=== PATIENT | male | born 1990 | race Hispanic/Latino ===

== ENCOUNTER 2020-07-12 18:09 | Inpatient (IN) | payer SELFPAY ==
[~2020-07-12] VITALS: Ht 172.7 cm; Wt 118.2 kg
[2020-07-12] MEDS ORDERED: ONDANSETRON ODT 4 MG TAB ONE ×2 (18:15→18:17)
[2020-07-12] MEDS ORDERED: KETOROLAC TROMETHAMINE 30MG/ML ONE (19:42)
[2020-07-12 19:58] LABS: BASOPHILS % (AUTO) 0.2 % (0.0-5.0); EOSINOPHILS % (AUTO) 0.1 % (0.0-8.0); HEMATOCRIT 45.7 % (36-48); LYMPHOCYTES % (AUTO) 8.6 % (21.0-51.0); MEAN CORPUSCULAR HGB CONC 35.7 g/dL (32.0-36.0); MEAN CORPUSCULAR VOLUME 86.9 fL (79-99); MONOCYTES % (AUTO) 4.5 % (3.0-13.0); NEUTROPHILS % (AUTO) 86.2 % (40.0-77.0); PLATELET COUNT (AUTO) 212 K/uL (130-400); RED BLOOD CELL COUNT(AUTO) 5.26 MIL/uL (4.00-5.50); RED CELL DISTRIBUTION WIDTH 12.9 % (11.0-15.5); WHITE BLOOD COUNT (AUTO) 15.8 K/uL (4.8-10.8)
[2020-07-12 20:01] LABS: APPEARANCE,URINE Clear (CLEAR); BILIRUBIN,URINE Negative (NEGATIVE); COLOR,URINE Dark Yellow (YELLOW); GLUCOSE, URINE (UA) Negative (NEGATIVE); KETONES,URINE Trace mg/dL (NEGATIVE); LEUKOCYTE ESTERASE ,URINE Negative (NEGATIVE); NITRATE,URINE Negative (NEGATIVE); OCCULT BLOOD,URINE Large (NEGATIVE); PROTEIN,URINE POS 1+ mg/dL (NEGATIVE)
[2020-07-12] MEDS ORDERED: MORPHINE SULFATE 4 MG/1ML SYG ONE (20:03)
[2020-07-12 20:09] LABS: AMPHET/METH SCREEN,URINE NEGATIVE (NEGATIVE); BARBITURATE SCREEN, URINE NEGATIVE (NEGATIVE); BENZODIAZEPINES SCREEN,URINE NEGATIVE (NEGATIVE); CANNABINOID SCREEN,URINE NEGATIVE (NEGATIVE); COCAINE SCREEN,URINE NEGATIVE (NEGATIVE); OPIATE SCREEN,URINE NEGATIVE (NEGATIVE); PHENCYCLIDINE SCREEN,URINE NEGATIVE (NEGATIVE)
[2020-07-12 20:11] LABS: CREATININE 1.2 mg/dL (0.5-1.5); POTASSIUM 4.2 mmol/L (3.5-5.1)
[2020-07-12 20:16] LABS: BILIRUBIN,TOTAL 0.3 mg/dL (0.2-1.0)
[2020-07-12 20:23] LABS: CALCIUM OXALATE CRYSTALS,UR Many /LPF (None Seen)
[2020-07-12 20:24] LABS: AMORPHOUS SEDIMENT,UR Few /LPF (None Seen); BACTERIA,URINE Few /HPF (None Seen); MUCUS,URINE Few LPF (None Seen); RBC,URINE None Seen /HPF (0-1); SQUAMOUS EPITHELIAL CELL,UR 0-2 /HPF (0-2); WBC,URINE None Seen /HPF (0-1)
[2020-07-12] MEDS ORDERED: ZOSYN 3.375GM+NS 50ML 50 ML IV ONE (23:28)
[2020-07-13] MEDS ORDERED: MORPHINE SULFATE 2 MG/ML 1ML SYG IV PRN (01:00)
[2020-07-13] MEDS ORDERED: ACETAMINOPHEN 325 MG TAB PO PRN ×2 (01:00)
[2020-07-13] MEDS ORDERED: KETOROLAC TROMETHAMINE 15MG/ML IM PRN (01:00)
[2020-07-13] MEDS ORDERED: ONDANSETRON HCL 4 MG/2 ML VIAL IV PRN (01:00)
[2020-07-13 04:50] VITALS: BP 130/82
[2020-07-13 06:08] LABS: HEMOGLOBIN A1C 5.2 % (4.0-6.0)
[2020-07-13] MEDS: SODIUM CHLORIDE 0.9% 1000ML 1,000 ML IV SCH ×3 (06:47→19:24)
[2020-07-13] MEDS: ZOSYN 3.375GM+NS 50ML 50 ML IV SCH ×3 (06:47→19:24)
[2020-07-13 08:12] VITALS: BP 103/61
[2020-07-13 11:21] VITALS: BP 112/74
[2020-07-13] MEDS: TAMSULOSIN HCL 0.4 MG CAP.ER.24H PO SCH (12:30)
[2020-07-13 16:28] VITALS: BP 113/64
[2020-07-13 17:18] LABS: HEMATOCRIT 43.3 % (42-54); MEAN CORPUSCULAR HEMOGLOBIN 30.4 pg (27.0-33.0); MEAN CORPUSCULAR HGB CONC 34.6 g/dL (32.0-36.0); MEAN CORPUSCULAR VOLUME 87.7 fL (79-99); RED BLOOD CELL COUNT(AUTO) 4.94 MIL/uL (4.50-6.20); WHITE BLOOD COUNT (AUTO) 7.7 K/uL (4.8-10.8)
[2020-07-13 19:56] VITALS: BP 105/60
[2020-07-13 23:46] VITALS: BP 103/56
[2020-07-14 04:00] VITALS: BP 106/60
[2020-07-14] MEDS: ZOSYN 3.375GM+NS 50ML 50 ML IV SCH ×3 (04:32→20:42)
[2020-07-14 05:14] LABS: BASOPHILS % (AUTO) 0.5 % (0.0-5.0); EOSINOPHILS % (AUTO) 2.7 % (0.0-8.0); HEMATOCRIT 41.5 % (42-54); MEAN CORPUSCULAR HEMOGLOBIN 31.2 pg (27.0-33.0); MEAN CORPUSCULAR HGB CONC 35.7 g/dL (32.0-36.0); MEAN CORPUSCULAR VOLUME 87.4 fL (79-99); MONOCYTES % (AUTO) 11.9 % (3.0-13.0); NEUTROPHILS % (AUTO) 53.6 % (40.0-77.0); PLATELET COUNT (AUTO) 216 K/uL (130-400); RED BLOOD CELL COUNT(AUTO) 4.75 MIL/uL (4.50-6.20); WHITE BLOOD COUNT (AUTO) 7.4 K/uL (4.8-10.8)
[2020-07-14 05:23] LABS: ALBUMIN 3.2 g/dL (3.5-5.0); BILIRUBIN,TOTAL 0.4 mg/dL (0.2-1.0); CREATININE 1.2 mg/dL (0.5-1.5); POTASSIUM 4.2 mmol/L (3.5-5.1); TOTAL PROTEIN, SERUM 6.6 g/dL (6.0-8.3)
[2020-07-14] MEDS ORDERED: IOHEXOL 350 MG/ML 100ML INFUS..BTL IV ONE (06:57)
[2020-07-14] MEDS: SODIUM CHLORIDE 0.9% 1000ML 1,000 ML IV SCH ×2 (07:00→17:00)
[2020-07-14 08:43] VITALS: BP 116/74
[2020-07-14] MEDS: TAMSULOSIN HCL 0.4 MG CAP.ER.24H PO SCH (10:24)
[2020-07-14 11:49] VITALS: BP 113/65
[2020-07-14 16:13] VITALS: BP 102/64
[2020-07-14 20:00] VITALS: BP 106/64
[2020-07-15] VITALS: BP 101/59
[2020-07-15] MEDS: SODIUM CHLORIDE 0.9% 1000ML 1,000 ML IV SCH ×2 (03:28→13:00)
[2020-07-15 04:00] VITALS: BP 106/65
[2020-07-15] MEDS: ZOSYN 3.375GM+NS 50ML 50 ML IV SCH ×2 (04:33→15:31)
[2020-07-15 08:27] VITALS: BP 108/66
[2020-07-15 08:48] LABS: INR 1.13 (0.85-1.15); PARTIAL THROMBOPLASTIN TIME 26.3 SEC (26.3-35.5); PROTHROMBIN TIME 11.6 SEC (9.6-11.6)
[2020-07-15 13:01] VITALS: BP 108/68
[2020-07-15] MEDS: TAMSULOSIN HCL 0.4 MG CAP.ER.24H PO SCH (15:31)
[2020-07-15] MEDS ORDERED: TAMS-1 PO (16:14)
== END 2020-07-15 17:30 | disposition home or self-care (01) | DRG 694 ==
LOC: EDSEX 18:09 → EDH 18:09 → EDHIP 18:10 → 3CH 07-13 04:12
PROVIDERS: ADMIT Internal Medicine; ATTEND Internal Medicine
DX: N13.2 Hydronephrosis with renal and ureteral calculous obstruction (principal); D72.829 Elevated white blood cell count, unspecified
CPT/HCPCS: 36415; 74176; 74400; 76770; 80053; 80305; 81001; 83036; 83690; 84145; 85025; 85027; 85610; 85730; 87088; G0378; J1885; J2270; J2543; Q9967